=== PATIENT | female | born 2000 | race Caucasian/White ===

== ENCOUNTER 2018-11-08 15:43 | Emergency (ER) | payer MEDICARE, OTHER ==
[2018-11-08 15:54] VITALS: RESP 16
[2018-11-08 16:36] VITALS: O2SAT 100
--- NOTE | 2018-11-08 17:08 | ED PDOC ---
HPI: Chest Pain Time Seen by Provider: 11/08/18 16:14 Chief Complaint (Nursing): Palpitations Chief Complaint (Provider): Palpitations History Per: Patient History/Exam Limitations: no limitations Onset/Duration Of Symptoms: Days, Worse Since (today), Other (comes and goes) Current Symptoms Are (Timing): Still Present Additional Complaint(s): Patient is a 18 y/o male with a PMHx of cerebral palsy who presents to the ED for evaluation of palpitations ongoing for the past three months. Patient reports her palpitations have worsened since onset and have slowly come and go. Patient was last seen by her doctor last week who did blood work including electrolyte and TSH, which she reports was "normal." Patient was advised to followup with special effects technician. Patient came into the ED today because her palpitations became more frequent and prolonged. Patient admits to feeling fatigued and tired since onset of palpitations. Patient denies CP, SOB, exacerbating or emitting factors, history of stress, or acute illnesses prior to onset. Of note, patient has a motorized scooter and has been experiencing a mild increase in spasticity in her cerebral palsy that's been progressive for several months. PCP: Dr. Aguilar Past Medical History Reviewed: Historical Data (cerebral palsy), Nursing Documentation, Vital Signs Vital Signs: Last Vital Signs Temp 98.2 F 11/08/18 16:35 Pulse 87 11/08/18 16:35 Resp 16 11/08/18 16:35 BP 123/77 11/08/18 16:35 Pulse Ox 100 11/08/18 16:35 - Surgical History Surgical History: No Surg Hx - Family History Family History: States: Unknown Family Hx - Immunization History Hx Tetanus Toxoid Vaccination: No Hx Influenza Vaccination: No Hx Pneumococcal Vaccination: No - Home Medications Home Medications: Ambulatory Orders Medication Instructions Recorded Brompheniramine/Pseudoephed/Dm 480 ml PO TID PRN 08/19/17 [Bromfed Dm Cough 118 ml] Budesonide [Pulmicort Respules] 1 mg IH TID PRN 08/19/17 - Allergies Allergies/Adverse Reactions: Allergies Allergy/AdvReac Type Severity Reaction Status Date / Time No Known Allergies Allergy Verified 08/19/17 01:06 Review of Systems ROS Statement: Except As Marked, All Systems Reviewed And Found Negative (as per HPI) Constitutional: Positive for: Other (fatigued and tired) Cardiovascular: Positive for: Palpitations. Negative for: Chest Pain Respiratory: Negative for: Shortness of Breath Physical Exam - Reviewed Nursing Documentation Reviewed: Yes Vital Signs Reviewed: Yes - Physical Exam Appears: Positive for: Non-toxic, No Acute Distress (appears younger then given age) Head Exam: Positive for: ATRAUMATIC, NORMOCEPHALIC Skin: Positive for: Warm, Dry Eye Exam: Negative for: Conjunctival injection, Scleral icterus ENT: Negative for: Pharyngeal Erythema, Tonsillar Exudate Neck: Positive for: Painless ROM, Trachea Midline Cardiovascular/Chest: Positive for: Regular Rate, Rhythm. Negative for: Murmur Respiratory: Positive for: Normal Breath Sounds (clear auscultation bilaterally) Gastrointestinal/Abdominal: Positive for: Soft. Negative for: Tenderness Back: Positive for: Muscle Spasm, Other (thoracic straightening (h/o surgery)) Extremity: Positive for: Other (Poor muscle bulk in lower extremity with occasional spastic movement of her extremities; mild contractures of her distal extremities). Negative for: Pedal Edema Lymphatic: Negative for: Adenopathy Neurologic/Psych: Positive for: Alert, Oriented (x3) - Laboratory Results Result Diagrams: 11/08/18 16:49 11/08/18 16:49 - ECG ECG: Positive for: Interpreted By Me ECG Rhythm: Positive for: Normal QRS, Normal ST Segment, Sinus Rhythm O2 Sat by Pulse Oximetry: 100 (RA) Pulse Ox Interpretation: Normal Medical Decision Making Medical Decision Making: Time: 1634 Impression: Palpitations DDx includes but not limited to thyroid dysfunction, electrolyte abnormality, anxiety, and muscle spasms. Plan: EKG BNP CMP Magnesium Phosphorus TSH Troponin I CBC Chest Portable [Rad] Return Checker IV Insertion ([place]) Infectious Mononucleosis [place] positive. Otherwise no clinically significant abnormalities. No abnormal rhythms during cardiac monitoring in ER. Scribe Attestation: Documented by Miguel Warren, acting as a scribe for provider Tanja Locke MD. All medical record entries made by the Scribe were at my direction and personally dictated by me. I have reviewed the chart and agree that the record accurately reflects my personal performance of the history, physical exam, medical decision making, and the department course for this patient. I have also personally directed, reviewed, and agree with the discharge instructions and disposition. Disposition - Clinical Impression Clinical Impression: Palpitations, Mononucleosis syndrome Counseled Patient/Family Regarding: Studies Performed, Diagnosis, Need For Followup - Disposition Disposition: Routine/Home Disposition Time: 18:16 Condition: STABLE Additional Instructions: DRINK PLENTY HYDRATING FLUIDS AND REST KEEP YOUR APPOINTMENT WITH THE WHEEL TRUING MACHINE TENDER. YOU WILL PROBABLY NEED A HOLTER MONITOR TO CONTINUOUSLY CHECK YOUR HEART FOR OVER 24 HOURS. FOLLOW UP WITH YOUR DOCTOR IN 1-2 WEEKS FOR REEVALUATION WELL. Instructions: Mononucleosis (DC), Palpitations (DC)
[2018-11-08 17:15] LABS: ALB/GLOB RATIO 1.3 (1.0-2.1); ALBUMIN 4.7 g/dL (3.5-5.0); ALT/SGPT 18 U/L (9-52); AST/SGOT 31 U/L (14-36); BLOOD UREA NITROGEN 16 mg/dl (7-17); CALCIUM 9.6 mg/dL (8.4-10.2); GFR NON-AFRICAN AMERICAN > 60
[2018-11-08 17:19] LABS: BASO % 0.5 % (0.0-2.0); EOS % 0.3 % (0.0-4.0); HEMOGLOBIN 14.7 g/dL (12.0-16.0); LYMPH # 2.8 K/uL (1.0-4.3); LYMPH % 35.8 % (20.0-40.0); MEAN CELL VOLUME 88.2 fl (81.0-99.0); MEAN CORPUSCULAR HEMOGLOBIN 29.2 pg (27.0-31.0); MEAN CORPUSCULAR HGB CONC 33.1 g/dL (33.0-37.0); MEAN PLATELET VOLUME 11.4 fl (7.2-11.7); MONO # 0.6 K/uL (0.0-0.8); MONO % 8.2 % (0.0-10.0); NEUT # 4.3 K/uL (1.8-7.0); NEUT % 55.2 % (50.0-75.0); NRBC % 0.2 % (0.0-0.0); RBC 5.03 Mil/uL (3.80-5.20); RED CELL DISTRIBUTION WIDTH 14.2 % (11.5-14.5); WHITE BLOOD COUNT 7.9 K/uL (4.8-10.8)
[2018-11-08 17:21] LABS: B-TYPE NATRIURETIC PEPTIDE 110 pg/ml (0-450)
[2018-11-08 18:29] VITALS: BP 110/72; PULSE 91; TEMP 98.1
--- NOTE | 2018-11-08 18:40 | RAD ---
HISTORY: palpitations COMPARISON: Image from chest x-ray performed 10/26/08 TECHNIQUE: Chest, one view. FINDINGS: LUNGS: No focal consolidation. PLEURA: No significant pleural effusion identified. No definite pneumothorax . CARDIOVASCULAR: Heart size appears within normal limits. OSSEOUS STRUCTURES: Partially imaged bilateral thoracolumbar spine stabilization rods. VISUALIZED UPPER ABDOMEN: Unremarkable. OTHER FINDINGS: Radiopaque densities project over the upper abdomen. Additional radiopaque densities outside the field consistent with external debris. Correlate clinically. IMPRESSION: No focal consolidation. Radiopaque densities project over the upper abdomen. Additional radiopaque densities outside the field consistent with external debris. Correlate clinically.
--- NOTE | 2018-11-09 10:31 | CARD ---
APPROVED REPORT Date of service: 11/08/2018 EKG Measurement Heart [id number] <Conclusion> Normal sinus rhythm Normal ECG
== END 2018-11-08 18:49 | disposition home or self-care (01) ==
LOC: H.ER 15:43
DX: R00.2 Palpitations (principal); B27.90 Infectious mononucleosis, unspecified without complication; G80.9 Cerebral palsy, unspecified; F41.9 Anxiety disorder, unspecified